=== PATIENT | male | born 1945 | race Caucasian/White ===

== ENCOUNTER 2022-09-23 16:41 | Emergency (ER) | payer MEDICARE, BC ==
[~2022-09-23] VITALS: Ht 172.7 cm; Wt 83.9 kg
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
[2022-09-23] MEDS ORDERED: IBUPROFEN 600 MG TABLET PO ONE (17:30)
[2022-09-23] MEDS ORDERED: IBUPROFEN 600 MG TABLET ONE (17:35)
--- NOTE | 2022-09-23 17:48 | NUR ---
XRAY AT BEDSIDE.
--- NOTE | 2022-09-23 18:29 | NUR ---
Patient discharged to home in stable condition. Written and verbal after care instructions given. Patient verbalizes understanding of instruction.
[2022-09-23 18:31] VITALS: BP 136/74
== END 2022-09-23 18:32 | disposition home or self-care (01) ==
LOC: ER 16:44
DX: R07.81 Pleurodynia (principal); E78.00 Pure hypercholesterolemia, unspecified; V89.2XXA Person injured in unspecified motor-vehicle accident, traffic, initial encounter; Y93.89 Activity, other specified; Y92.89 Other specified places as the place of occurrence of the external cause; Y99.8 Other external cause status
CPT/HCPCS: 71100-TC